=== PATIENT | male | born 1995 | race Caucasian/White ===

== ENCOUNTER 2022-02-25 10:21 | Emergency (ER) | payer MEDICARE, OTHER, SELFPAY ==
[2022-02-25 10:22] VITALS: BP 150/73; PULSE 122; RESP 22; TEMP 39.3; O2SAT 98; BMI 26.6; BMI 28.0
--- NOTE | 2022-02-25 11:05 | HMH.EDGENADL ---
ED Disposition Clinical Impression: Pyelonephritis Disposition: Home, Self-Care Condition on Discharge: Good Additional Instructions: Please continue to monitor your condition very closely at home. If your condition worsens or does not improve in the next 48 hours, please return for reassessment. Antibiotic as prescribed. If your condition worsens or any other concerns arise, please return probably to the emergency department. Referrals: Zeke Schrader MD [Primary Care Provider] - - Critical Care Critical Care Time: No Attestation: On 02/25/22, the high probability of a clinically significant, sudden or life threatening deterioration of the following system(s) required my full and direct attention, intervention and personal management. The time I documented below is in addition to time spent performing reported procedures but includes the following listed in this critical care notation. Medical Decision Making - Medical Records Medical records reviewed: Yes: I reviewed the patient's medical records. - Sumeet Inquiry Pt receiving controlled substance: No Vital Signs: 02/25/22 10:22 02/25/22 13:33 02/25/22 13:57 Temperature 102.8 F H 98.5 F Temperature Source Oral Oral Pulse Rate 95 H 92 H Pulse Rate [Radial] 122 H Respiratory Rate 22 16 Blood Pressure 107/67 L 107/67 L Blood Pressure [Right Arm] 150/73 H Blood Pressure Mean [Right Arm] 98 Blood Pressure Source Automatic Cuff Blood Pressure Position Sitting Sitting Blood Pressure Position [Right Arm] Sitting 02 Sat by Pulse Oximetry 98 98 97 Oxygen Delivery Method Room Air Room Air Room Air - Lab Data Lab results reviewed: Yes: I reviewed the patient's lab results. Lab Results 02/25/22 10:45: Urine Color Yellow, Urine Appearance Clear, Urine pH 5.5, Ur Specific [place] 1.020, Urine Protein Trace, Urine Glucose (UA) Negative, Urine Ketones 3+, Urine Blood Trace-i, Urine Nitrate Negative, Urine Bilirubin 2+ A, Urine Urobilinogen 1.0, Ur Leukocyte Esterase 2+ A, Urine RBC Occasional, Urine WBC 3-5, Ur Squamous Epith Cells 3-5, Urine Bacteria None 02/25/22 11:00: Lactate 1.1 02/25/22 11:20: WBC 10.7, RBC 4.76, Hgb 14.3, Hct 41.1 L, MCV 86.3, MCH 30.0, MCHC 34.8, RDW 12.4, Plt Count 154, MPV 8.6, Neut % (Auto) 83.9 H, Lymph % (Auto) 9.7 L, Garvin % (Auto) 5.7, Eos % (Auto) 0.3, Baso % (Auto) 0.3, Neut # (Auto) 9.0 H, Lymph # (Auto) 1.0, Garvin # (Auto) 0.6, Eos # (Auto) 0.0, Baso # (Auto) 0.0 02/25/22 11:22: Sodium 132 L, Potassium 3.2 L, Chloride 100, Carbon Dioxide 23, Anion Gap 12.2, BUN 6 L, Creatinine 0.70, Estimated Creat Clear 181, Estimated GFR 134, Est GFR ( Amer) 162, Glucose 103 H, Calcium 9.2, Total Bilirubin 1.1, AST 34, ALT 22, Alkaline Phosphatase 59, Total Protein 6.5, Albumin 3.9, Globulin 2.6, Albumin/Globulin Ratio 1.5 Result diagrams: 02/25/22 11:20 02/25/22 11:22 Orders (Tests/Meds): ED MEDICATIONS Discontinued Medications Generic Name Dose Route Start Last Admin Trade Name Freq PRN Reason Stop Dose Admin Acetaminophen 1,000 mg 02/25/22 10:36 02/25/22 10:56 Acetaminophen 500mg Tab PO 02/25/22 10:37 1,000 mg ONCE ONE Administration Lactated Ringer's 1,000 mls @ 999 mls/hr 02/25/22 10:45 02/25/22 10:55 Lactated Ringer's 1000 Ml Bag IV 02/25/22 11:45 999 mls/hr .Q1H1M JOSE Administration Ondansetron HCl 4 mg 02/25/22 10:37 02/25/22 10:56 Ondansetron 4mg/2ml Vial IV 02/25/22 10:38 4 mg ONCE ONE Administration Potassium Chloride 40 meq 02/25/22 13:29 02/25/22 13:42 Potassium Chloride 10meq Capsule.Er PO 02/25/22 13:30 40 meq ONCE ONE Administration ORDERS Category Date Time Status Blood Culture Stat Micro 02/25/22 11:00 Received Urine Culture Stat Micro 02/25/22 11:06 Received Medical Decision Narrative: Chris is a 26-year-old male with history of lower extremity paraplegia requiring self caths presenting for chief complaint of suprapubic abdominal pa
[2022-02-25 11:10] LABS: Microscopic, Urine URINE MICROSCOPIC (MICROSCOPIC)
[2022-02-25 11:16] LABS: Appearance,Urine CLEAR (Clear); Blood, Urine TRACE-I (Negative); Color,Urine YELLOW (Yellow); Glucose,Urine (UA) Negative (Negative); Ketones,Urine 3+ (Negative); Leukocyte Esterase,Urine 2+ (Negative); Nitrate,Urine Negative (Negative); PH,Urine 5.5 (5.0-8.5); Protein,Urine TRACE (Negative)
[2022-02-25 11:18] LABS: Bilirubin,Urine 2+ (Negative)
[2022-02-25 11:19] LABS: Lactic Acid 1.1 mmol/L (0.7-2.1)
[2022-02-25 11:33] LABS: RBC,Urine Occasional #/hpf (0-3)
[2022-02-25 11:47] LABS: Chloride 100 mmol/L (98-107)
[2022-02-25 11:48] LABS: Basophils % 0.3 % (0.1-2.0); Eosinophils % 0.3 % (0.1-12.0); Hematocrit 41.1 % (42.0-52.0); Hemoglobin 14.3 g/dL (14.1-18.0); Lymphocytes % 9.7 % (10-50); Mean Corpuscular HGB Conc 34.8 g/dL (31.8-35.4); Mean Corpuscular Volume 86.3 fl (80-94); Mean Platelet Volume 8.6 fl (7.4-10.4); Monocytes # 0.6 K/mm3 (0.1-1.0); Monocytes % 5.7 % (1.7-9.3); Neutrophils % 83.9 % (37.0-80.0); Platelet Count 154 K/mm3 (142-424); Red Blood Count 4.76 M/mm3 (4.60-6.20); Red Cell Distribution Width 12.4 % (11.5-17.5); White Blood Count 10.7 K/mm3 (4.8-10.8)
[2022-02-25 11:48] LABS: Potassium 3.2 mmoL/L (3.5-5.1); Sodium 132 mmol/L (136-145)
[2022-02-25 11:50] LABS: Alanine Aminotransferase 22 U/L (12-78); Albumin Level 3.9 g/dl (3.5-5.0); Albumin/Globulin Ratio 1.5 (1.1-1.8); Alkaline Phosphatase 59 U/L (38-126); Anion Gap 12.2 mEq/L (5-15); Aspartate Amino Transferase 34 U/L (17-59); Bilirubin,Total 1.1 mg/dl (0.2-1.3); Blood Urea Nitrogen 6 mg/dl (9-20); Carbon Dioxide 23 mmol/L (22.0-30.0); Creatinine Clearance Estimated 181 mL/min (50-200); Estimated Glomerular Filt Rate 134 ml/min (>60); GFR (African American) 162 ML/MIN (>60); Globulin 2.6 g/dL (1.3-3.2); Total Protein,Serum 6.5 g/dl (6.3-8.2)
[2022-02-25 11:51] LABS: Calcium 9.2 mg/dl (8.4-10.2); Glucose 103 mg/dl (74-100)
[2022-02-25 13:33] VITALS: BP 107/67; PULSE 95; RESP 16; TEMP 36.9; O2SAT 98
[2022-02-25 13:57] VITALS: BP 107/67; PULSE 92; O2SAT 97
[2022-02-25 14:36] VITALS: BP 108/69; PULSE 92; RESP 18; TEMP 37; O2SAT 98
== END 2022-02-25 14:37 | disposition home or self-care (01) ==
PROVIDERS: Emergency Provider Emergency Medicine; PCP Internal Medicine Adolescent Medicine
DX: N12 Tubulo-interstitial nephritis, not specified as acute or chronic (principal); G82.20 Paraplegia, unspecified; F17.210 Nicotine dependence, cigarettes, uncomplicated
CPT/HCPCS: 80053; 81001; 83605; 85025; 87040; 87086; 87088; 87186; 96360; 96374; 96375; 99284; J2405

== ENCOUNTER 2025-04-12 20:06 | Emergency (ER) | payer MEDICARE, OTHER, SELFPAY ==
[2025-04-12 21:06] VITALS: BP 154/110; PULSE 85; RESP 18; TEMP 36.6; O2SAT 99; BMI 28.2
--- OUTSIDE RECORDS SUMMARY | 2025-04-12 21:18 | XMS_ITS | Clinical Summary ---
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 Phone Nubia Ojeda MD Primary Care Provider Active Problems Problem Noted Date Diagnosed Date Paraplegia 02/08/2025 Encounters Date Type Department Care Team Description 02/08/2025 2:24 PM EDT - 02/08/2025 11:59 PM EDT Hospital Encounter [facility] [address] [place] [address] Kelsi Anderson Paraplegia, unspecified (CMS/HCC) (Primary Dx) Discharge Disposition: Still a Patient 02/08/2025 Plan of Care Documentation [facility] [address] [place] [address] 02/08/2025 Travel from Last 3 Months Social History Tobacco Use Types Packs/Day Years Used Date Smoking Tobacco: Never Alcohol Use Standard Drinks/Week Comments No 0 (1 standard drink = 0.6 oz pur e alcohol) Sex and Gender Information Value Date Recorded Sex Assigned at Not on file Legal Sex Male 6:29 PM EDT Gender Identity Not on file Sexual Orientation Not on file Last Filed Vital Signs Vital Sign Reading Time Taken Comments Blood Pressure - - Pulse - - Temperature - - Respiratory Rate - - Oxygen Saturation - - Inhaled Oxygen Concentration - - Weight 99.8 kg (220 lb) 10/16/2016 12:58 PM EST Height 180.3 cm (5' 11 ) 10/16/2016 12:58 PM EST Body Mass Index 30.68 10/16/2016 12:58 PM EST Plan of Treatment Health Maintenance Due Date Last Done Comments [facility]-Depression Screening 1993 [facility]-HIV Screening 1993 [facility]-Infant/Child/Adol SDOH Screenings 1993 [facility]-IPV Vaccines (2 of 3 - 4-dose series) 03/01/1998 02/01/1998 [facility]-Varicella Vaccines (1 of 2 - 13+ 2-dose series) 2006 HPV Vaccines (1 - Male 3-dose series) 2008 [facility]- SDOH Screenings 2011 [facility]-Adult SDOH Screenings 2011 [facility]-Hepatitis B Vaccines (1 of 3 - 19+ 3-dose series) 2012 [facility]-DTaP,Tdap,and Td Vaccines (3 - Tdap) 12/06/2019 12/05/2019, 08/22/2005, 02/01/1998 [id number] Vaccine (1 - season) 2024 [facility]-Influenza Vaccine (Season Ended) 2025 08/02/2020, 08/17/2019, 08/24/2015 [facility]-Medicare Annual Wellness (AWV) 01/07/2026 01/07/2025, 12/02/2023, 08/02/2020 [facility]-Zoster Vaccines (1 of 2) 2043 [facility]-Hepatitis C Screening Completed 2021, 08/02/2020 [facility]-HIB Vaccines Aged Out No longer e ligible based on patient's age to complete this topic [facility]-Hepatitis A Vaccines Aged Out No longer eligible based on patient's age to complete this topic [facility]-Pneumococcal Vaccine: Pediatrics (0 to 5 Years) and At-Risk Patients (6 to 49 Years) Aged Out No longer eligible b ased on patient's age to complete this topic [facility]-Rotavirus Vaccines Aged Out No lo nger eligible based on patient's age to complete this topic Insurance [employer]ETNA [facility] MEDICAID [employer] MED[employer]ARE Care Teams 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
--- NOTE | 2025-04-12 23:20 | HMH.EDGENADL ---
Discharge Plan Disposition Patient Disposition: Home, Self-Care Prescriptions Prescriptions: New amoxicillin-pot clavulanate 875-125 mg tablet 1 tab PO BID 7 Days Qty: 14 0RF No Action tizanidine [Zanaflex] 4 mg capsule 4 mg PO HS PRN baclofen 20 mg tablet 20 mg PO BID PRN (Reason: pain) lisinopril 20 mg tablet 20 mg PO DAILY Patient Comments: TAKE 1 TABLET BY MOUTH EVERY DAY AT NIGHT famotidine 20 mg tablet 20 mg PO DAILY cranberry extract 200 mg capsule 200 mg PO DAILY Rx Instructions: administer with a meal amoxicillin 500 mg tablet 500 mg PO TID Qty: 30 0RF Referrals Follow up/Referrals: Nubia Ojeda MD [Primary Care Provider, Medical] - See instructions Activity Restrictions/Add. Instructions Additional Instructions/Restrictions: Please take antibiotics as prescribed. Please take tylenol and ibuprofen as needed and use dental balls as needed. Clinical Impressions Clinical Impression: Pain, dental Print Language Print Language: Senegalese Discharge ED Provider: Connor Pham Adult HPI General Chief complaint: PAIN Stated complaint: Right jaw swollen Time Seen by Provider: 04/12/25 23:00 Mode of Arrival: Wheelchair Source of Information: Patient Description of Symptoms (Recalled from ER Triage Doc. by RN): Pt presents for evaluation of right sided facial swelling that started on friday. Pt states his gum is almost swollen over his right lower back teeth. History of Present Illness HPI narrative: 29-year-old male presents for dental pain. He reports that over the last couple of days he has had pain and swelling in the left mandibular molars. He denies fever. Has not seen a dentist recently. Related Data Home Medications ?Medication ?Instructions ?Recorded ?Confirmed baclofen 20 mg tablet 20 mg PO BID PRN pain 02/13/23 02/13/23 cranberry extract 200 mg capsule 200 mg PO DAILY 02/13/23 02/13/23 famotidine 20 mg tablet 20 mg PO DAILY acid reflux 02/13/23 02/13/23 lisinopril 20 mg tablet 20 mg PO DAILY 02/13/23 02/13/23 tizanidine 4 mg capsule (Zanaflex) 4 mg PO HS PRN 02/13/23 02/13/23 Previous Rx's ?Medication ?Instructions ?Recorded amoxicillin 500 mg tablet 500 mg PO TID #30 tabs 02/13/23 amoxicillin 875 mg-potassium 1 tab PO BID 7 days #14 tabs 04/12/25 clavulanate 125 mg tablet Allergies Allergy/AdvReac Type Severity Reaction Status Date / Time VANCOMYCIN Allergy Unknown Uncoded 02/13/23 10:45 [facility] Disclaimer: The information contained in this section may have been updated after the patient was seen, as this information can be updated by other users. Medical History (Updated 04/12/25 @ 23:22 by Connor Pham MD) Spinal cord injury H/O back injury Frequent UTI Hypertension Pyelonephritis Cervical strain, acute Concussion without loss of consciousness Laceration Surgical History (Updated 02/13/23 @ 10:49 by Soumya Swan LPN) History of surgery on lower extremity History of tonsillectomy Previous back surgery Family History Father Hypertension Grandfather Hypertension Cancer Heart attack Social History (Updated 02/13/23 @ 10:51 by Soumya Swan LPN) Smoking Status: Current every day smoker tobacco type: e-cigarettes alcohol intake: current alcohol intake frequency: a few times a month current occupational status: disabled Travel in the last 8 weeks?: None Have you lived/traveled outside [place] in past 30 days?: No Contact w/someone who lives/traveled outside US past 30 days?: No Exposure to someone with infectious disease in past 14 days?: No Do you have a fever (greater than 100.4 F or 38 C)?: No Have you tested positive for COVID-19?: No Exposed to someone with COVID-19 in past 14 days?: No Do you have a sore throat?: No Do you have a cough?: No Do you have any weakness?: No Do you have any diarrhea?: No Are you experiencing any unusual bleeding?: No Do you have any muscle aches/pain?: No Do you have any abdominal pain?: No Are you experiencing loss of taste or smell?: No Other Medical History Have you received the Flu Vaccine for this season: No Have you received the Pneumonia Vaccine: No ROS Obtained: Yes All systems reviewed & no additional complaints except as documented Physical Exam General General appearance: alert and in no apparent distress Head Head exam: atraumatic and normocephalic Eye Eye exam: Present normal appearance, PERRL and EOMI ENT ENT exam: Present normal external ear exam; Absent normal oropharynx (Swelling and tenderness of the right mandibular gums. No obvious abscess or fluctuant lesion.) Neck Neck exam: Present normal inspection and full ROM Chest Chest inspection: Present normal inspection and symmetric chest wall rise; Absent tenderness Respiratory Respiratory exam: Present normal lung sounds bilaterally; Absent respiratory distress Cardiovascular Cardiovascular exam: Present regular rate and normal rhythm Abdominal Exam Abdominal exam: Present soft; Absent distention, tenderness or guarding Extremities Exam Extremities exam: Present normal inspection; Absent edema or joint swelling Back Exam Back exam: Present normal inspection; Absent tenderness Neurological Exam Neurological exam: Present alert and oriented X3; Absent motor sensory deficit Psychiatric Psychiatric exam: Present normal affect and normal mood Skin Skin exam: Present warm, dry and normal color Lymphatic Lymphatic Findings: no adenopathy Medical Decision Making Medical Records Medical records reviewed: Yes I reviewed the patient's medical records. Screening: Per USPSTF and CDC recommendations, given the prevalence of disease in our region, it is our hospital?s policy to screen for HIV and viral Hepatitis for all patients aged 18 and over and those with ongoing risk factors. Sumeet Inquiry Pt receiving controlled substance: No Sumeet was queried for this patient: No Vital Signs: 04/12/25 21:06 04/12/25 23:34 Temperature 97.9 F 98.6 F Temperature Source Oral Pulse Rate 84 Pulse Rate [Right] 85 Respiratory Rate 18 18 Blood Pressure 129/84 Blood Pressure [Right Arm] 154/110 H Blood Pressure Mean [Right Arm] 124 Blood Pressure Source [Right Arm] Automatic Cuff Blood Pressure Position [Right Arm] Sitting 02 Sat by Pulse Oximetry 99 Oxygen Delivery Method Room Air Room Air Lab Data Lab results reviewed: Yes I reviewed the patient's lab results. Orders (Tests/Meds): ED MEDICATIONS Discontinued Medications Generic Name Dose Route Start Last Admin Trade Name Freq PRN Reason Stop Dose Admin Amoxicillin/Clavulanate Potassium 1 each 04/12/25 23:20 04/12/25 23:28 Amoxicillin/Clavulanate Potassium 875/125mg Tablet PO 04/12/25 23:21 1 each ONCE ONE Administration Lidocaine HCl 15 ml 04/12/25 23:20 04/12/25 23:28 Lidocaine 2% Viscous Rachel 15ml Udc PO 04/12/25 23:21 15 ml ONCE ONE Administration Medical Decision Narrative: 29-year-old male presents for few days of dental pain and swelling. History was obtained via interactive discussion with patient. On arrival, patient is [afebrile, hemodynamically stable, satting appropriately, alert, oriented x4, GCS 15], moving all extremities spontaneously. Full physical exam performed and significant for tenderness and swelling in the right mandibular jaw, no obvious abscess or dental fracture Differential includes but is not limited to abscess, cellulitis, odontogenic infection, Katherine's, Lemierre's Patient was given Augmentin for empiric coverage of odontogenic infection and discharged with prescription for same. Patient given dental balls for pain. No evidence of abscess on exam that require drainage. Patient encouraged to follow-up with dentistry soon as possible for further evaluation Procedures Risk/Benefits of Procedure(s) Were Explained: Yes Critical Care Critical Care Time Critical Care Time: No
[2025-04-12] MEDS: AMOXICILLIN/CLAVULANATE POTASSIUM 875/125MG TABLET 1 EACH PO (23:28)
[2025-04-12] MEDS: LIDOCAINE 2% VISCOUS SOL 15ML UDC 15 ML PO (23:28)
[2025-04-12 23:34] VITALS: BP 129/84; PULSE 84; RESP 18; TEMP 37; O2SAT 100
== END 2025-04-12 23:36 | disposition home or self-care (01) ==
PROVIDERS: Emergency Provider Emergency Medicine; PCP Family Medicine
DX: R22.0 Localized swelling, mass and lump, head (principal); K08.89 Other specified disorders of teeth and supporting structures; F17.290 Nicotine dependence, other tobacco product, uncomplicated
CPT/HCPCS: 99283